=== PATIENT | female | born 1980 | race Caucasian/White ===

== ENCOUNTER 2016-10-06 16:53 | Emergency (ER) | payer BC ==
[2016-10-06 17:34] VITALS: BP 155/102
--- NOTE | 2016-10-06 17:52 | UC ---
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 and swelling in top of left foot - History of Current Complaint Chief Complaint: UCLowerExtremity Stated Complaint: LEFT ANKLE INJURY-FALL Time Seen by Provider: 10/06/16 17:51 Hx Obtained From: Patient Hx Last Menstrual Period: 1 MONTH AGO, CONTROL PILL ?: No Onset/Duration: Sudden Onset, Still Present, Worse Since - after working all day Severity Initially: Mild Severity Currently: Moderate Pain Intensity: 5 Pain Scale Used: 0-10 Numeric Aggravating Factor(s): Standing, Ambulation Alleviating Factor(s): Rest, Elevation Able to Bear Weight: Yes - with pain - Allergies/Home Medications Allergies/Adverse Reactions: Allergies Allergy/AdvReac Type Severity Reaction Status Date / Time No Known Allergies Allergy Verified 10/06/16 17:33 Home Medications: Home Medications Ibuprofen TAB* [Motrin TAB* 600 MG] 600 mg PO Q6H PRN 10/06/16 [History Confirmed 10/06/16] Oral Control 1 tab PO DAILY 10/06/16 [History Confirmed 10/06/16] PMH/Surg Hx/FS Hx/Imm Hx Previously Healthy: Yes Endocrine History Of: Denies: Diabetes, Thyroid Disease Cardiovascular History Of: Denies: Cardiac Disorders Respiratory History Of: Denies: Asthma - Surgical History Surgical History: None - Family History Known Family History: Positive: Hypertension - Social History Occupation: Employed Full-time Lives: With Family Alcohol Use: None Substance Use Type: None Smoking Status (MU): Never Smoked Tobacco - Immunization History Most Recent Influenza Vaccination: did not get Review of Systems Constitutional: Negative Skin: Negative Eyes: Negative ENT: Negative Respiratory: Negative Cardiovascular: Negative Gastrointestinal: Negative Genitourinary: Negative Motor: Negative Neurovascular: Negative Musculoskeletal: Arthralgia - left lateral foot, Edema - top of left foot Neurological: Negative Psychological: Negative All Other Systems Reviewed And Are Negative: Yes Physical Exam Triage Information Reviewed: Yes Appearance: Well-Appearing, No Pain Distress, Well-Nourished Vital Signs: Initial Vital Signs Temp 98.0 F 10/06/16 17:28 Pulse 77 10/06/16 17:28 Resp 14 10/06/16 17:28 BP 155/102 10/06/16 17:28 Pulse Ox 100 10/06/16 17:28 Vital Signs Reviewed: Yes Eye Exam: Normal Eyes: Positive: Conjunctiva Clear ENT Exam: Normal ENT: Positive: Normal ENT inspection, Hearing grossly normal. Negative: Nasal congestion, Nasal drainage, Trismus, Muffled/hoarse voice Dental Exam: Normal Neck exam: Normal Neck: Positive: Supple, Nontender Respiratory Exam: Normal Respiratory: Positive: Chest non-tender, No respiratory distress, No accessory muscle use Cardiovascular Exam: Normal Cardiovascular: Positive: RRR, Pulses Normal, Brisk Capillary Refill Musculoskeletal Exam: Normal Musculoskeletal: Positive: Strength Intact, ROM Intact, Edema @ - top lateral left foot Neurological Exam: Normal Neurological: Positive: Alert, Muscle Tone Normal Psychological Exam: Normal Skin Exam: Normal Diagnostics - Radiology No standard instances Xray Interpretation: Positive (See Comments) - cannot rule out stress fracture Radiology Interpretation Completed By: Radiologist Lower Extremity Course/Dx - Course Course Of Treatment: cam boot, rice, ibuprofen follow with ortho no work until cleared by ortho - Differential Dx/Diagnosis Differential Diagnosis/HQI/PQRI: Contusion, Fracture (Closed), Sprain, Strain Provider Diagnoses: contusion left foot, stress fracture Discharge - Discharge Plan Condition: Stable Disposition: HOME Patient Education Materials: Ibuprofen (By mouth), Foot Fracture in Adults (ED) , RICE Therapy (ED) Forms: *Work Release Referrals: Jose Manuel Lees MD [Medical Doctor] - 4 Days Jennie Mckinney MD [Primary Care Provider] -
--- NOTE | 2016-10-06 18:17 | RAD ---
Indication: Fourth metatarsal pain. 3 views of left foot demonstrates cortical thickening of the fourth metatarsal. No other fractures are identified. INDICATION: Cortical thickening of the fourth metatarsal. Stress related change is not excluded.
== END 2016-10-06 19:01 | disposition home or self-care (01) ==
LOC: UCCORT 16:53
DX: S90.32XA Contusion of left foot, initial encounter (principal); W10.9XXA Fall (on) (from) unspecified stairs and steps, initial encounter; Y93.9 Activity, unspecified; Y92.9 Unspecified place or not applicable
CPT/HCPCS: 99212; G0463